=== PATIENT | male | born 1970 | race Two or more races ===

== ENCOUNTER 2023-08-08 15:20 | Emergency (ER) | payer OTHER ==
[2023-08-08 15:26] VITALS: RESP 20; BMI 25.1
[2023-08-08 18:20] LABS: VENOUS BASE EXCESS 0.2 mmol/L (-2-2); VENOUS O2 SATURATION 70.5 % (70-80); VENOUS PCO2 41.2 mmHg (38-52); VENOUS PH 7.401 (7.310-7.410)
[2023-08-08 18:33] LABS: BASO % 0.6 % (0-2.0); EOS % 1.6 % (0-4.5); HEMATOCRIT 38.7 % (35.4-49); HEMOGLOBIN 12.9 GM/dL (11.7-16.9); LYMPH % 28.9 % (8-40); MCH 26.1 pg (25.7-33.7); MCHC 33.3 g/dl (32.0-35.9); MEAN CELL VOLUME 78.4 fl (80-96); MONO % 7.8 % (3.8-10.2); NEUT % 61.1 % (42.8-82.8); PLATELET COUNT 324 10^3/uL (134-434); RBC 4.94 M/mm3 (4.00-5.60); RDW 13.2 % (11.9-15.9); WHITE BLOOD COUNT 9.8 K/mm3 (4.0-10.0)
[2023-08-08 18:54] LABS: POTASSIUM 3.9 mmol/L (3.5-5.1)
[2023-08-08 18:55] LABS: CALCIUM 9.3 mg/dL (8.5-10.1)
[2023-08-08 18:56] LABS: ALBUMIN 3.6 g/dl (3.4-5.0); BLOOD UREA NITROGEN 17.3 mg/dL (7-18)
[2023-08-08 18:59] LABS: CREATININE 0.8 mg/dL (0.55-1.3)
[2023-08-08 19:00] LABS: BILIRUBIN,TOTAL 0.3 mg/dL (0.2-1)
[2023-08-08 19:01] LABS: TOT PROT 7.2 g/dl (6.4-8.2)
[2023-08-08 19:30] VITALS: BP 132/85; PULSE 85; TEMP 97.6
== END 2023-08-08 19:32 | disposition home or self-care (01) ==
LOC: JERFT 15:20
DX: R05.9 Cough, unspecified (principal); R50.9 Fever, unspecified; R42 Dizziness and giddiness; R55 Syncope and collapse; E11.65 Type 2 diabetes mellitus with hyperglycemia; Z20.822 Contact with and (suspected) exposure to COVID-19
CPT/HCPCS: 0241U-QW; 36415; 71046-TC-FY; 80053; 82803; 84484; 85025; 93005; 93010; 99285-25